=== PATIENT | male | born 1955 | race Two or more races ===

== ENCOUNTER 2019-02-18 11:03 | Outpatient (CLI) | payer OTHER | END 2019-02-18 11:34 | disposition home or self-care (01) | LOC: TOM 11:03 | DX: K57.30 Diverticulosis of large intestine without perforation or abscess without bleeding (principal); R10.11 Right upper quadrant pain; K59.04 Chronic idiopathic constipation; Z12.11 Encounter for screening for malignant neoplasm of colon ==

== ENCOUNTER 2019-12-20 15:52 | Emergency (ER) | payer OTHER ==
[~2019-12-20] VITALS: Ht 180.3 cm; Wt 75.7 kg
[2019-12-20] MEDS ORDERED: OMEGA 3 1,0001 EACH (16:09)
== END 2019-12-20 20:19 | disposition home or self-care (01) ==
LOC: ER 15:52
DX: R55 Syncope and collapse (principal)